=== PATIENT | male | born 1970 | race Caucasian/White ===

== ENCOUNTER 2017-11-14 23:00 | Emergency (ER) | payer OTHER ==
[~2017-11-14] VITALS: Ht 180.3 cm; Wt 74.4 kg
[~2017-11-14 23:00] MED LIST: ALBU90OI INH; AMOX875 PO; Amoxicillin500 MG PO; CYCL10 PO; HYDACE5 PO; HYDGUAL120 PO; HYDPAM50 PO; LORA1 PO; NAPR500 PO; NAPR550 PO; Naprosyn500 MG PO; PENVK500 PO; SULTRIDS PO; TRAACE PO; TRAM50 PO
== END 2017-11-15 03:00 | disposition home or self-care (01) ==
LOC: ER 23:00
DX: K43.9 Ventral hernia without obstruction or gangrene (principal); F17.200 Nicotine dependence, unspecified, uncomplicated
CPT/HCPCS: 96372; 96374; 99283-25; J2250; J3010

== ENCOUNTER → 2019-09-11 | Outpatient (CLI) | payer OTHER ==
[~2019-09-11] MED LIST changes: +IBUP800 PO; +Norco 5-325 Ta1 EACH PO; +Prednisone20 MG PO; +Voltaren100 GM TOP
== END | disposition home or self-care (01) ==
LOC: LAB SHORT 09:42 → LAB EV 09:42
DX: H66.91 Otitis media, unspecified, right ear (principal)
CPT/HCPCS: 87081